=== PATIENT | male | born 1980 | race Asian ===

== ENCOUNTER 2017-09-03 13:39 | Emergency (ER) | payer OTHER ==
[2017-09-03] MEDS ORDERED: fentaNYL* 50 MCG/ML 2 ML VIAL (100 MCG VIAL) IV ONE (13:50)
[2017-09-03] MEDS ORDERED: Metoclopramide IV* 5 MG/ML 2 ML VIAL IV ONE (13:50)
[2017-09-03] MEDS ORDERED: Ketorolac INJ* 30 MG/ML 1 ML VIAL IV ONE (13:50)
[2017-09-03] MEDS ORDERED: diPHENhydraMINE IV* 50 MG/ML 1 ml VIAL (BENADRYL) IV ONE (13:50)
--- NOTE | 2017-09-03 14:22 | RAD ---
Indication: Lethargy, vomiting, headache. Congestion. Comparison: No relevant prior exams available on the [facility] for comparison. Technique: Noncontrast CT vertex of skull through foramen magnum. Report: The sulci, ventricles, and basal cisterns are normal for age. Zamorano matter white matter differentiation is preserved without evidence for edema. No intra or extra axial hemorrhage, mass, or fluid collection detected. Unremarkable visualized orbital contents. Unremarkable calvarium and skull base. Unremarkable scalp. The visualized paranasal sinuses and mastoid air spaces are clear. IMPRESSION: Negative unenhanced head CT.
[2017-09-03 14:28] LABS: ABS Basophils 0 10^3/ul (0-0.2); ABS Eosinophils 0 10^3/ul (0-0.6); ABS Lymphocytes 1.5 10^3/ul (1.0-4.8); ABS Monocytes 0.5 10^3/ul (0-0.8); ABS Nucleated RBC 0 10^3/ul; Eosinophil % 0.5 % (0-6); Hematocrit 40 % (42-52); Hemoglobin 13.4 g/dl (14.0-18.0); Lymphocyte % 21.4 % (25-47); Mean Corpuscular HGB Conc 34 g/dl (31-36); Mean Corpuscular Hemoglobin 28 pg (27-31); Mean Corpuscular Volume 84 fL (80-94); Mean Platelet Volume 8 um3 (7.4-10.4); Nucleated Red Blood Cells % 0.1; Platelet Count 180 10^3/ul (150-450); Red Blood Count 4.74 10^6/ul (4.0-5.4); Red Cell Distribution Width 13 % (10.5-15); White Blood Count 7.1 10^3/ul (3.5-10.8)
[2017-09-03 14:37] LABS: INR 1.02 (0.77-1.02)
[2017-09-03] MEDS: NS 0.9% 1000 ML* 2,000 ML IV ONE (14:42)
[2017-09-03 14:45] LABS: EGFR Non-African American 104.6 (>60)
[2017-09-03 15:23] LABS: Urine Appearance Clear; Urine Blood Negative (Negative); Urine Color Yellow; Urine Ketones Negative (Negative); Urine Protein Negative (Negative); Urine Specific Gravity 1.015 (1.010-1.030); Urine Urobilinogen Negative (Negative)
[2017-09-03 16:51] VITALS: BP 114/69
--- NOTE | 2017-09-03 18:36 | ED ---
Esau Rendon Angela, scribed for Campbell Shields MD on 09/03/17 at 1356 . Influenza-Like Illness - HPI Summary HPI Summary: This pt is a 37 y/o male presenting to [facility] via EMS c/o headache, vomiting, cough, and congestion. Pt reports he woke up this morning with a headache. He states he couldn't sleep secondary to headache. Pt notes he has pain in his throat from vomiting. He additionally states having neck pain. Pt reports taking decongestion this morning. He denies runny nose, fever. Pt has PMHx of migraine. - History of Current Complaint Chief Complaint: EDWeakness Time Seen by Provider: 09/03/17 13:44 Hx Obtained From: Patient Onset/Duration: Lasting Hours, Lasting Weeks Associated Signs & Symptoms: Myalgia, Cough, Nasal Congestion, Headache, Vomiting - Allergy/Home Medications Allergies/Adverse Reactions: Allergies Allergy/AdvReac Type Severity Reaction Status Date / Time No Known Allergies Allergy Verified 09/03/17 13:45 PMH/Surg Hx/FS Hx/Imm Hx Endocrine/Hematology History: Denies: Hx Diabetes Cardiovascular History: Denies: Hx Hypertension Neurological History: Reports: Hx Migraine Infectious Disease History: No Infectious Disease History: Denies: Traveled Outside the [place] in Last 30 Days - Family History Known Family History: Positive: Diabetes - Father Family History: Mother: low blood pressure - Social History Alcohol Use: None Substance Use Type: Reports: None Smoking Status (MU): Never Smoked Tobacco Review of Systems Negative: Fever ENT: Other - sinus congestion Negative: Sore Throat, Nasal Discharge Positive: Cough Positive: Vomiting, Nausea Musculoskeletal: Other - neck pain Positive: Headache All Other Systems Reviewed And Are Negative: Yes Physical Exam - Summary Physical Exam Summary: VITAL SIGNS: Reviewed. GENERAL: Patient is a well-developed and weak male who is lying comfortable in the stretcher. Patient is not in any acute respiratory distress. HEAD AND FACE: No signs of trauma. No ecchymosis, hematomas or skull depressions. No sinus tenderness. EYES: PERRLA, EOMI x 2, No injected conjunctiva, no nystagmus. EARS: Hearing grossly intact. Ear canals and tympanic membranes are within normal limits. MOUTH: Oropharynx within normal limits. NECK: Supple, trachea is midline, no adenopathy, no JVD, no carotid bruit, no c- spine tenderness, neck with full ROM. No meningeal signs. CHEST: Symmetric, no tenderness at palpation LUNGS: Clear to auscultation bilaterally. No wheezing or crackles. CVS: Regular rate and rhythm, S1 and S2 present, no murmurs or gallops appreciated. ABDOMEN: Soft, non-tender. No signs of distention. No rebound no guarding, and no masses palpated. Bowel sounds are normal. EXTREMITIES: FROM in all major joints, no edema, no cyanosis or clubbing. NEURO: Alert and oriented x 3. No acute neurological deficits. Speech is normal and follows commands. SKIN: Dry and warm GCS: 15 Triage Information Reviewed: Yes Vital Signs On Initial Exam: Initial Vitals Temp Pulse Resp BP Pulse Ox 97.4 F 71 16 137/84 98 09/03/17 13:42 09/03/17 13:42 09/03/17 13:42 09/03/17 13:42 09/03/17 13:42 Vital Signs Reviewed: Yes - Dariela Coma Scale Best Eye Response: 4 - Spontaneous Best Motor Response: 6 - Obeys Commands Best Verbal Response: 5 - Oriented Coma Scale Total: 15 Diagnostics - Vital Signs Vital Signs Temp Pulse Resp BP Pulse Ox 09/03/17 13:42 97.4 F 71 16 137/84 98 - Laboratory Result Diagrams: 09/03/17 14:14 09/03/17 14:14 Lab Statement: Any lab studies that have been ordered have been reviewed, and results considered in the medical decision making process. - CT Brain CT CT Interpretation: No Acute Changes - IMPRESSION: Negative unenhanced head CT. Dr. Shields has reviewed this radiology report. CT Interpretation Completed By: Radiologist Flu Symptom Course/Dx - Course Assessment/Plan: This pt is a 37 y/o male presenting to [facility] via EMS c/o headache, vomiting, cough, and congestion. Pt reports he woke up this morning with a headache. He states he couldn't sleep secondary to headache. Pt notes he has pain in his throat from vomiting. He additionally states having neck pain. Pt reports taking decongestion this morning. He denies runny nose, fever. Pt has PMHx of migraine. Test results without any significant abnormalities. Head CT: Negative unenhanced head CT. In the ED course, the pt was given IV fluids, Benadryl, Reglan, Toradol, and all his symptoms improved. At this point pt is hemodynamically stable, alert and oriented x3. He is asymptomatic. Therefore he will be discharged to home with follow up from his PCP. He is instructed to return to the ED for any worsening symptoms. - Diagnoses Provider Diagnoses: Headache Discharge - Discharge Plan Condition: Stable Disposition: HOME Patient Education Materials: General Headache (ED) Referrals: Non Staff,Doctor [Primary Care Provider] - [facility] [place] [facility] [Outside] Additional Instructions: Please follow up with your primary care provider back at home. RETURN TO THE ED FOR ANY WORSENING SYMPTOMS. The documentation as recorded by the Esau garcia Angela accurately reflects the service I personally performed and the decisions made by , Campbell Shields MD.
== END 2017-09-03 16:45 | disposition home or self-care (01) ==
LOC: ED 13:39
DX: R51 Headache (principal)
CPT/HCPCS: 36415; 70450; 80053; 81003; 83605; 85025; 85610; 85652; 85730; 87502; 87651; 96374; 96375; 99284; J1200; J1885; J2765; J3010